=== PATIENT | female | born 1985 | race Caucasian/White ===

== ENCOUNTER 2021-12-25 02:44 | Emergency (ER) | payer OTHER ==
--- NOTE | 2021-12-25 02:53 | ED Physician Documentation ---
PD HPI FEMALE - Stated complaint Stated Complaint: PELVIC & FLANK PX - Chief complaint Chief Complaint: Abd Pain - History obtained from History obtained from: Patient - History of Present Illness Timing - onset: How many weeks ago (1) Timing - details: Abrupt onset, Intermittant Pain level max: 8 Associated symptoms: Pelvic pain (right). No: Fever, Hematuria Contributing factors: No: Similar symptoms before: Diagnosis (renal colic) Recently seen: Not recently seen - Additional information Additional information: has had intermittent right pelvic and right flank pain x 1 week, became constant and severe tonight. She has had nausea but no vomiting. She says this feels similar to previous kidney stones; has twice had to have procedure to retrieve kidney stones, and has had stents (post-op ureteral). Review of Systems Constitutional: reports: Reviewed and negative Cardiac: reports: Reviewed and negative Respiratory: reports: Reviewed and negative GI: reports: Abdominal Pain (right flank pain), Nausea. denies: Vomiting : denies: Dysuria, Frequency, Hematuria PD PAST MEDICAL HISTORY - Past Medical History Past Medical History: Yes : Kidney stones - Past Surgical History Past Surgical History: No - Present Medications Home Medications: Ambulatory Orders Medication Instructions Recorded Confirmed Ondansetron Odt [Zofran] 4 mg TL Q6H PRN #14 tablet 12/25/21 Oxycodone HCl/Acetaminophen 1 - 2 each PO Q6H PRN #14 tablet 12/25/21 [Percocet 5-325 mg Tablet] Tamsulosin [Flomax] 1 cap PO DAILY #14 cap 12/25/21 - Allergies Allergies/Adverse Reactions: Allergies Allergy/AdvReac Type Severity Reaction Status Date / Time No Known Drug Allergies Allergy Verified 12/25/21 02:52 PD ED PE NORMAL - Vitals Vital signs reviewed: Yes - General General: Alert and oriented X 3, Well developed/nourished, Other (obvious painful distress) - Cardiac Cardiac: RRR, No murmur - Respiratory Respiratory: No respiratory distress, Clear bilaterally - Abdomen Abdomen: Soft, Non tender - Back Back: No CVA TTP Results - Vitals Vitals: Oxygen O2 Source Room air - Labs Labs: Laboratory Tests 12/25/21 12/25/21 12/25/21 02:55 02:55 03:00 WBC 6.1 RBC 4.02 L Hgb 11.9 L Hct 36.7 L MCV 91.3 MCH 29.6 MCHC 32.4 RDW 13.0 Plt Count 230 MPV 9.0 Neut # (Auto) 4.1 Lymph # (Auto) 1.4 L Bent # (Auto) 0.5 Eos # (Auto) 0.1 Baso # (Auto) 0.0 Absolute Nucleated RBC 0.00 Nucleated RBC % 0.0 Sodium Potassium Chloride Carbon Dioxide Anion Gap BUN Creatinine Estimated GFR (MDRD) Glucose Calcium Total Bilirubin AST ALT Alkaline Phosphatase Total Protein Albumin Globulin Albumin/Globulin Ratio Lipase Urine Color YELLOW Urine Clarity CLEAR Urine pH 6.0 Ur Specific Blue >=1.030 H Urine Protein TRACE Urine Glucose (UA) NEGATIVE Urine Ketones TRACE Urine Occult Blood MODERATE H Urine Nitrite NEGATIVE Urine Bilirubin NEGATIVE Urine Urobilinogen 0.2 (NORMAL) Ur Leukocyte Esterase NEGATIVE Urine RBC 6-10 H Urine WBC 0-3 Ur Squamous Epith Cells MANY Squamous H Urine Crystals 0-2 Calcium Oxalate Urine Bacteria Rare Urine Mucus Few Strands Ur Microscopic Review INDICATED Urine Culture Comments NOT INDICATED Urine HCG, Qual NEGATIVE 12/25/21 03:00 WBC RBC Hgb Hct MCV MCH MCHC RDW Plt Count MPV Neut # (Auto) Lymph # (Auto) Bent # (Auto) Eos # (Auto) Baso # (Auto) Absolute Nucleated RBC Nucleated RBC % Sodium 139 Potassium 3.7 Chloride 105 Carbon Dioxide 26 Anion Gap 8.0 BUN 19 Creatinine 0.8 Estimated GFR (MDRD) 82 L Glucose 110 H Calcium 9.0 Total Bilirubin 0.4 AST 13 ALT 11 Alkaline Phosphatase 33 L Total Protein 6.5 L Albumin 4.1 Globulin 2.4 Albumin/Globulin Ratio 1.7 Lipase 35 Urine Color Urine Clarity Urine pH Ur Specific Blue Urine Protein Urine Glucose (UA) Urine Ketones Urine Occult Blood Urine Nitrite Urine Bilirubin Urine Urobilinogen Ur Leukocyte Esterase Urine RBC Urine WBC Ur Squamous Epith Cells Urine Crystals Urine Bacteria Urine Mucus Ur Microscopic Review Urine Culture Comments Urine HCG, Qual - Rads (name of study) CT A/P Radiology: Prelim report reviewed, See rad report PD MEDICAL DECISION MAKING - ED course Complexity details: reviewed results, re-evaluated patient, considered differential, d/w patient ED course: Right renal colic due to 7mm UVJ calculus with moderate hydroureter. She is given IV zofran, dilaudid, toradol with good symptomatic relief per patient report. Incidental note is made of 8mm right intrarenal calculus. Results d/w patient, follow up recommended (ideally with urology), return precautions discussed. She is given take-home percocet and rx for percocet and ondansetron transmitted to her pharmacy of choice I am prescribing a short course of short-acting opioid pain medication for this patient. I have reviewed the patients [employer] and no concerning findings were noted. I have discussed that the opioids are for short term therapy only, and will not be refilled from the ED Departure - Departure Disposition: 01 Home, Self Care Clinical Impression: Renal colic Condition: Good Instructions: ED Stone Renal W Colic Follow-Up: IRIS VALLES ARNP [Primary Care Provider] - Prescriptions: Tamsulosin [Flomax] 1 cap PO DAILY #14 cap Oxycodone HCl/Acetaminophen [Percocet 5-325 mg Tablet] 1 - 2 each PO Q6H PRN #14 tablet PRN Reason: pain Ondansetron Odt [Zofran] 4 mg TL Q6H PRN #14 tablet PRN Reason: Nausea / Vomiting Comments: Prescriptions for pain medication (oxycodone with acetaminophen), ondansetron (anti-nausea medication), and tamsulosin (medication that can increase chances of, and time to, passage of kidney stone) have been electronically submitted to the [facility] pharmacy in [place]. The stone in the right ureter is large (7mm) and might need a procedure for removal. You should see a urologist to discuss options. You also have an 8mm stone in the right kidney; this is not causing symptoms at this time, but might cause similar symptoms in the future if it breaks off and gets stuck in the ureter (the tube that connects the kidney to the bladder). The most you can do at this time for the right kidney stone (and prevention of future kidney stones) is to keep hydrated. Whether dietary changes will help is often determined by the type of kidney stone (which requires a stone or fragment of stone to be sent to a lab) and/or a 24-hour urine collection test (typically ordered by a urologist). I am prescribing a short course of narcotic pain medication for you. These are potentially dangerous and addictive medications that should be used carefully. These medications may constipate you. Take an [id number] stool softener (docusate) twice daily with plenty of water while taking these medications. If you go 24 hours without a bowel movement, take [id number] miralax, per package instructions. Do not drink or drive while taking these medications. If you received narcotic or sedating medications while in the emergency department, do not drive for 24 hours. Store this medication in a safe, secure place and out of reach of children. It is a violation of federal law to give or sell this medication to another person or to use in a manner other than prescribed. The ED will not refill narcotic prescriptions, including prescriptions lost or stolen. To dispose of unwanted medications: 1. [facility] at [address] in [place] has a medication drop box. They accept prescription medications (in pill form) Saturday through Saturday 9:00 a.m. to 5:00 p.m. 2. The [facility] accepts prescription medications (in pill form only) for disposal year round. Call for more information. 3. Contact the [facility] for the next [facility] sponsored prescription drug collection event. , [phone], or [phone]; Discharge Date/Time: 12/25/21 05:51
[2021-12-25 03:08] LABS: BILIRUBIN,URINE NEGATIVE (NEGATIVE); GLUCOSE, URINE (UA) NEGATIVE (NEGATIVE); KETONES,URINE (UA) TRACE mg/dL (NEGATIVE); LEUKOCYTE ESTERASE, URINE NEGATIVE (NEGATIVE); NITRITE,URINE NEGATIVE (NEGATIVE); OCCULT BLOOD,URINE MODERATE (NEGATIVE); PROTEIN,URINE TRACE mg/dL (NEGATIVE); UROBILINOGEN,URINE 0.2 (NORMAL) E.U./dL (NORMAL)
[2021-12-25 03:08] LABS: BASOPHILS % (AUTO) 0.5 %; EOSINOPHILS # (AUTO) 0.1 10^3/uL (0.0-0.7); EOSINOPHILS % (AUTO) 1.5 %; HCT - HEMATOCRIT 36.7 % (37.0-47.0); HGB - HEMOGLOBIN 11.9 g/dL (12.0-16.0); LYMPHOCYTES # (AUTO) 1.4 10^3/uL (1.5-3.5); LYMPHOCYTES % (AUTO) 23.1 %; MEAN CORPUSCULAR HEMOGLOBIN 29.6 pg (27.0-31.0); MEAN CORPUSCULAR HGB CONC 32.4 g/dL (32.0-36.0); MEAN CORPUSCULAR VOLUME 91.3 fL (81.0-99.0); MONOCYTES # (AUTO) 0.5 10^3/uL (0.0-1.0); MONOCYTES % (AUTO) 7.7 %; NEUTROPHILS # (AUTO) 4.1 10^3/uL (1.5-6.6); PLT - PLATELET COUNT 230 10^3/uL (130-450); RED BLOOD COUNT 4.02 10^6/uL (4.20-5.40); WHITE BLOOD COUNT 6.1 x10^3/uL (4.8-10.8)
[2021-12-25 03:09] LABS: CLARITY,URINE CLEAR (CLEAR); HCG UR QUAL NEGATIVE
[2021-12-25] MEDS ORDERED: HYDROmorphone 1 MG/ML CARPUJECT IVP STA (03:10)
[2021-12-25] MEDS ORDERED: ONDANSETRON 4 MG/2 ML VIAL IVP STA (03:10)
[2021-12-25] MEDS ORDERED: KETOROLAC 30 MG/ML VIAL IVP STA (03:11)
[2021-12-25 03:15] LABS: WBC,URINE 0-3 /HPF (0-5)
[2021-12-25 03:16] LABS: BACTERIA,URINE Rare /HPF (None Seen); CRYSTALS,URINE 0-2 Calcium Oxalate /LPF; MUCUS,URINE Few Strands; SQUAMOUS EPITHELIAL CELL,UR MANY Squamous (<= Few)
[2021-12-25 03:21] LABS: ALBUMIN 4.1 g/dL (3.2-5.5); ALBUMIN/GLOBULIN RATIO 1.7 (1.0-2.2); BILIRUBIN,TOTAL 0.4 mg/dL (0.2-1.0); CREATININE 0.8 mg/dL (0.4-1.0); POTASSIUM 3.7 mmol/L (3.5-5.0); TOTAL PROTEIN 6.5 g/dL (6.7-8.2)
[2021-12-25] MEDS ORDERED: TAMSULOSIN 0.4 MG CAPSULE PO STA (03:35)
[2021-12-25] MEDS ORDERED: oxyCODONE/ACET 5/325 Prepack 4 PO STA (05:26)
[2021-12-25 05:49] VITALS: BP 156/85
--- NOTE | 2021-12-25 09:56 | CT Report ---
PROCEDURE: Abdomen/Pelvis WO INDICATIONS: right flank pain TECHNIQUE: Noncontrast 5 mm thick sections acquired from the diaphragms to the symphysis. 5 mm coronal and sagi ttal reformats were then performed. For radiation dose reduction, the following was used: automated exposure control, adjustment of mA and/or kV according to patient size. COMPARISON: None. FINDINGS: Image quality: Excellent. ABDOMEN: Lung bases: Lung bases are clear. Heart size is normal. Solid organs: Liver and spleen are normal in size. Gallbladder is normal Pancreas is normal in con tours. No adrenal nodules. There is a 7mm stone at the right ureterovesical junction demonstrating CT density 783 HU. There is m oderate right hydronephrosis and hydroureter. The 4 x 8 mm noncompressive stone is seen in the infer ior pole of the right kidney (CT density 799 HU). No left renal calculi hydronephrosis. Kidneys are n ormal in size. Peritoneum and bowel: Unenhanced bowel loops demonstrate normal wall thickness and caliber. Surgica l suture in the cecum is presumably related to appendectomy. Mild diverticulosis without diverticulit is. There is a moderate amount stool in colon. No free fluid or air. Nodes and vessels: No retroperitoneal or mesenteric adenopathy by size criteria. Aorta and inferior vena cava are normal in caliber. Miscellaneous: No ventral hernias. PELVIS: Genitourinary: Uterus and ovaries are grossly normal. No free fluid in the cul-de-sac. Bladder wall thickness is normal. Miscellaneous: No inguinal hernias or adenopathy. Bones: No suspicious bony lesions. No vertebral body compression fractures. IMPRESSION: 1. There is a 7 mm obstructive stone at the right UVJ causing moderate right hydronephrosis. 2. A 2 x 8 mm nonobstructive stone in right kidney. No significant discrepancy with the preliminary interpretation. Reviewed by: Kd Chun MD on 12/25/2021 9:55 AM PDT Approved by: Kd Chun MD on 12/25/2021 9:55 AM PDT Station ID: [id number]
== END 2021-12-25 05:51 | disposition home or self-care (01) ==
LOC: ED 02:44
DX: N23 Unspecified renal colic (principal)
CPT/HCPCS: 36415; 74176; 80053; 81001; 81025; 83690; 85025; 96374; 96375; 99282; 99284; A9270; J1170; 81003; 87086